=== PATIENT | male | born 1985 | race Caucasian/White ===

== ENCOUNTER 2024-01-07 08:25 | Outpatient (CLI) | payer BC, SELFPAY ==
[2024-01-07 08:34] LABS: Microscopic, Urine URINE MICROSCOPIC (MICROSCOPIC)
[2024-01-07 09:25] LABS: Basophils # 0.1 K/mm3 (0-0.2); Basophils % 1.1 % (0.1-2.0); Eosinophils # 0.4 K/mm3 (0.0-0.4); Eosinophils % 6.3 % (0.1-12.0); Hematocrit 42.7 % (42.0-52.0); Hemoglobin 14.5 g/dL (14.1-18.0); Lymphocytes # 1.9 K/mm3 (0.7-4.5); Lymphocytes % 28.6 % (10-50); Mean Corpuscular Hemoglobin 27.2 pg (27.0-31.2); Mean Corpuscular Volume 79.9 fl (80-94); Mean Platelet Volume 7.9 fl (7.4-10.4); Monocytes # 0.5 K/mm3 (0.1-1.0); Neutrophils # 3.9 K/mm3 (1.8-7.8); Neutrophils % 56.9 % (37.0-80.0); Platelet Count 319 K/mm3 (142-424); Red Blood Count 5.34 M/mm3 (4.60-6.20); Red Cell Distribution Width 14.9 % (11.5-17.5); White Blood Count 6.8 K/mm3 (4.8-10.8)
[2024-01-07 09:57] LABS: Alanine Aminotransferase 26 U/L (12-78); Albumin Level 4.1 g/dl (3.5-5.0); Albumin/Globulin Ratio 1.5 (1.1-1.8); Alkaline Phosphatase 82 U/L (38-126); Aspartate Amino Transferase 20 U/L (17-59); Bilirubin,Total 0.6 mg/dl (0.2-1.3); Blood Urea Nitrogen 16 mg/dl (9-20); Calcium 9.3 mg/dl (8.4-10.2); Carbon Dioxide 25 mmol/L (22.0-30.0); Chloride 106 mmol/L (98-107); Chol/HDL Ratio 3.8 (1-3.5); Cholesterol 165 mg/dl (140-200); Estimated Glomerular Filt Rate 83 ml/min (>60); GFR (African American) 101 ML/MIN (>60); Globulin 2.7 g/dL (1.3-3.2); Glucose 92 mg/dl (74-100); HDL Cholesterol 43 mg/dl (40-60); Sodium 139 mmol/L (136-145); Total Protein,Serum 6.8 g/dl (6.3-8.2); Triglycerides 91 mg/dl (30-150); VLDL Cholesterol 18 mg/dL (0-40)
[2024-01-07 10:14] LABS: Appearance,Urine CLEAR (Clear); Bilirubin,Urine Negative (Negative); Blood, Urine Negative (Negative); Color,Urine YELLOW (Yellow); Free T4 (Free Thyroxine) 1.47 ng/dl (0.78-2.19); Glucose,Urine (UA) Negative (Negative); Ketones,Urine Negative (Negative); Leukocyte Esterase,Urine Negative (Negative); Nitrate,Urine Negative (Negative); Protein,Urine Negative (Negative); Urobilinogen,Urine 0.2 EU/dl (0.2)
[2024-01-07 10:20] LABS: 25-OH Vitamin D, Total 18.6 ng/mL (30-100)
[2024-01-07 10:32] LABS: Thyroid Stimulating Hormone 1.81 uIU/mL (0.465-4.68)
[2024-01-07 10:47] LABS: Iron 71 ug/dL (49-181)
[2024-01-07 10:57] LABS: Total Iron Binding Capacity 279 ug/dL (261-462)
[2024-01-07 10:58] LABS: Vitamin B12 944 pg/mL (239-931)
[2024-01-07 11:22] LABS: Ferritin 116 ng/ml (17.9-464)
[2024-01-07 12:17] LABS: HIV (1&2) Antibody Rapid NONREACTIVE (NONREACTIVE)
[2024-01-07 14:47] LABS: Hemoglobin A1C 5.5 % (4.0-6.0)
[2024-01-08 11:13] LABS: HCV Ab Non Reactive (Non Reactive)
== END 2024-01-07 23:59 | disposition home or self-care (01) ==
PROVIDERS: PCP Nurse Practitioner Family; Visit Provider Nurse Practitioner Family
DX: E66.9 Obesity, unspecified (principal); R53.83 Other fatigue; Z11.59 Encounter for screening for other viral diseases; Z11.4 Encounter for screening for human immunodeficiency virus [HIV]; Z13.1 Encounter for screening for diabetes mellitus; Z13.220 Encounter for screening for lipoid disorders
CPT/HCPCS: 36415; 80050; 80053; 80061; 81001; 82306; 82607; 82728; 83036; 83540; 83550; 84439; 84443; 85025; 86803; 87086; 87389

== ENCOUNTER 2024-01-08 19:15 | Emergency (ER) | payer BC, SELFPAY ==
[2024-01-08 19:17] VITALS: BP 144/106; PULSE 84; RESP 18; TEMP 36.6; O2SAT 98; BMI 36.8
[2024-01-08 19:23] VITALS: BP 144/106; PULSE 86; O2SAT 98
--- NOTE | 2024-01-08 19:34 | PC.NURSE ---
L eye 20/20, R 20/50, Both 20/15. informed
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
[2024-01-08] MEDS: DEXAMETHASONE 4MG TABLET 10 MG PO (20:04)
[2024-01-08] MEDS: ACETAMINOPHEN 500MG TAB 1000 MG PO (20:04)
[2024-01-08] MEDS: IBUPROFEN 600 MG TABLET PO (20:04)
[2024-01-08] MEDS: BACITRACIN ZINC OINT 30GM TUBE TP (20:34)
[2024-01-08] MEDS: FLUORESCEIN SODIUM 1MG STRIP 1 MG OP (20:39)
[2024-01-08] MEDS: TETRACAINE 0.5% OPTH SOL 15ML OP (20:39)
[2024-01-08 20:40] VITALS: BP 144/106; PULSE 89; RESP 18; TEMP 36.8; O2SAT 97
== END 2024-01-08 20:41 | disposition home or self-care (01) ==
PROVIDERS: Emergency Provider Emergency Medicine; PCP Nurse Practitioner Family
DX: T20.40XA Corrosion of unspecified degree of head, face, and neck, unspecified site, initial encounter (principal); H57.12 Ocular pain, left eye; H53.8 Other visual disturbances; G50.1 Atypical facial pain; T65.91XA Toxic effect of unspecified substance, accidental (unintentional), initial encounter; Y92.89 Other specified places as the place of occurrence of the external cause
CPT/HCPCS: 99283; J8540

== ENCOUNTER 2024-01-20 07:42 | Day surgery (SDC) | payer BC, SELFPAY ==
[2024-01-17 10:18] VITALS: BMI 37.9
[2024-01-20] VITALS (10 sets, daily range): BP systolic 110–134; BP diastolic 83–100; PULSE 69–91; RESP 12–18; TEMP 36.3–36.8; O2SAT 96–100
[2024-01-20] MEDS: CEFAZOLIN SODIUM 2 GM in 0.9 % SODIUM CHLORIDE 100 ML IV (09:00)
[2024-01-20] MEDS: LIDOCAINE 1% 20ML MDV 20 ML (09:12)
--- NOTE | 2024-01-20 09:23 | EXP.ANES.CKL ---
[facility] Disclaimer: The information contained in this section may have been updated after the patient was seen, as this information can be updated by other users. Medical History No significant past medical history Surgical History History of tonsillectomy History of myringotomy Family History Family/Other Alcoholism Mother Hyperlipidemia Social History Smoking Status: Never smoker alcohol intake: never substance use type: denies use current occupational status: unemployed Travel in the last 8 weeks: None [facility] Anesthesia Checklist Patient Identification Patient Identification: Verbal (Name & ) Structural Data Admitted From: Home Planned Operative Procedure/s: excision neoplasm l arm NPO Status Verified Time NPO: 00:00 Additional verifications Hx Blood Transfusions: No Blood Transfusion Reaction: No Airway Assessment Mallampati Score:: Class II C-Spine Mobility Assessed: Yes TMJ Mobility Assessed: Yes Dentition: Good Dentition Neurological Assessment Level of Consciousness: Awake, Alert and Appropriate Anesthesia Plan Anesthesia Risk discussed: Yes Anesthesia Plan: Verified ASA Class: II Anesthesia Type: General
--- NOTE | 2024-01-20 09:28 | P.OP_ITS ---
Date of procedure: 01/20/24 Pre-op Diagnosis:: Left upper extremity lipoma (6 cm) Post-op Diagnosis:: Same Procedure performed:: Excision of 6 cm left upper extremity lipoma Surgeon:: Armando Bell MD DISTRICT ADMINISTRATIVE ASSISTANT:: Rj Walter Anesthesia: local and LMA Estimated blood loss (mL): 5 Operative findings:: Lesion excised in toto Operative note:: After informed consent was obtained the patient was taken to the operating room and placed in the supine position. General anesthesia with laryngeal mask airway was achieved. His left forearm was prepped and draped in a sterile fashion. After infiltration with local anesthetic an incision was made overlying the palpable lesion. A fatty tumor consistent with lipoma was noted in the subcutaneous tissue. A combination of sharp dissection and blunt dissection was utilized to free the lipoma from surrounding tissue. The lesion was passed off for pathologic evaluation. Electrocautery was utilized to achieve hemostasis. Skin was then closed with 3-0 Monocryl STRATAFIX in a running subcuticular fashion. Dressings were applied and the patient was transferred to recovery in stable condition after removal of his laryngeal mask airway. Condition: stable Disposition: PACU Specimens:: Left upper extremity lipoma Complications:: No immediate
--- NOTE | 2024-01-20 09:37 | EXP.ANES.I ---
[facility] Anesthesia Record Part I Anesthesia Record I Intake, IV Amount: 1,000 Hydration: Adequate Estimated blood loss (mL): 0 Urine output (mL): 0 Blood Pressure: 124/100 SaO2: 98 Pulse Rate: 76 Airway Patency: Patent Respiratory Rate: 12 Temperature: 98 F Patient is:: Awake and Stable Stable to PACU at:: 09:34
[2024-01-20] MEDS: IBUPROFEN 600 MG TABLET PO (10:36)
[2024-01-20] MEDS: ACETAMINOPHEN 500MG TAB 500 MG PO (10:37)
--- NOTE | 2024-01-20 12:08 | P.PNANES_ITS ---
[facility] Anesthesia Record Part II Anesthesia Record Part II Discharge Time: 10:10 Destination: Surgical Day Care (OP Surgery) PACU nurse assessment reviewed?: Yes Patient Condition:: Good Anesthesia Complications:: None Swallowing reflex intact?: Yes Airway Patency: Patent Cyanosis?: No Blood Pressure: 127/97 SaO2: 100 Respiratory Rate: 18 Pulse Rate: 69 Temperature: 97.4 F Mental Status: Alert & Oriented Pain level:: 0 Nausea and/or vomitting:: None Intake, IV Amount: 0 Hydration: Adequate
== END 2024-01-20 10:43 | disposition home or self-care (01) ==
PROVIDERS: PCP Nurse Practitioner Family; Visit Provider Surgery
PROC: (CPT 24071; principal; 2024-01-20 09:15)
DX: D17.22 Benign lipomatous neoplasm of skin and subcutaneous tissue of left arm (principal)
CPT/HCPCS: 24071; 96374; J0690; J1100; J2250; J2405; J3010

== ENCOUNTER 2024-04-06 13:31 | Outpatient (CLI) | payer BC, SELFPAY ==
[2024-04-06 16:31] LABS: Coronavirus 19, PCR Not Detected (NotDetected); Human Rhinovirus Not Detected (NotDetected); Influenza A, PCR Not Detected (NotDetected); Influenza B, PCR Not Detected (NotDetected); Respiratory Syncytial Virus Not Detected (NotDetected)
== END 2024-04-06 23:59 | disposition home or self-care (01) ==
LOC: LAB.DROPOF 04-07 12:00
PROVIDERS: PCP Nurse Practitioner Family; Visit Provider Nurse Practitioner Family
DX: R68.89 Other general symptoms and signs (principal); R50.9 Fever, unspecified; R11.2 Nausea with vomiting, unspecified; R19.7 Diarrhea, unspecified
CPT/HCPCS: 87631

== ENCOUNTER 2024-04-12 15:10 | Outpatient (CLI) | payer BC, SELFPAY ==
--- NOTE | 2024-04-12 15:13 | XR_ITS ---
FINAL REPORT CLINICAL HISTORY: Shortness of breath COMPARISON: None FINDINGS: PA and lateral views of the chest were obtained. No acute pulmonary density is evident. There is no evidence of effusion or other pleural disease. The mediastinum has a normal appearance. The cardiac silhouette is unremarkable. IMPRESSION: Unremarkable chest exam. Reviewed, Interpreted and Dictated by Wale Eng MD Transcribed by Lisandra Fuller Authenticated and [facility]
--- NOTE | 2024-04-12 15:13 | XR_ITS ---
FINAL REPORT CLINICAL HISTORY: Left knee pain COMPARISON: None FINDINGS: LEFT KNEE Three views demonstrate no acute fracture or dislocation. The joint spaces appear normal. No acute soft tissue abnormality is seen. IMPRESSION: No acute bony abnormality. Reviewed, Interpreted and Dictated by Wale nEg MD Transcribed by Lisandra Fuller Authenticated and [facility]
[2024-04-12 15:43] LABS: Basophils # 0.1 K/mm3 (0-0.2); Basophils % 0.6 % (0.1-2.0); Eosinophils # 0.3 K/mm3 (0.0-0.4); Eosinophils % 3.1 % (0.1-12.0); Hematocrit 45.5 % (42.0-52.0); Hemoglobin 14.5 g/dL (14.1-18.0); Lymphocytes # 2.2 K/mm3 (0.7-4.5); Lymphocytes % 25.5 % (10-50); Mean Corpuscular HGB Conc 31.9 g/dL (31.8-35.4); Mean Corpuscular Hemoglobin 26.7 pg (27.0-31.2); Mean Corpuscular Volume 83.6 fl (80-94); Mean Platelet Volume 9.5 fl (7.4-10.4); Monocytes # 0.6 K/mm3 (0.1-1.0); Monocytes % 6.5 % (1.7-9.3); Neutrophils # 5.6 K/mm3 (1.8-7.8); Neutrophils % 64.1 % (37.0-80.0); Platelet Count 325 K/mm3 (142-424); Red Blood Count 5.44 M/mm3 (4.60-6.20); Red Cell Distribution Width 14.5 % (11.5-17.5); White Blood Count 8.8 K/mm3 (4.8-10.8)
[2024-04-12 16:19] LABS: Erythrocyte Sedimentation Rate 1 mm/hr (0-15)
[2024-04-12 16:30] LABS: Blood Urea Nitrogen 18 mg/dl (9-20); Calcium 9.5 mg/dl (8.4-10.2); Carbon Dioxide 27 mmol/L (22.0-30.0); Estimated Glomerular Filt Rate 94 ml/min (>60); GFR (African American) 114 ML/MIN (>60); Glucose 90 mg/dl (74-100); Potassium 4.6 mmoL/L (3.5-5.1); Sodium 139 mmol/L (136-145); Uric Acid 4.9 mg/dl (3.5-8.5)
[2024-04-12 16:35] LABS: C-Reactive Protein 10.2 mg/L (0-4)
[2024-04-12 16:41] LABS: Anion Gap 13.6 mEq/L (5-15); Chloride 103 mmol/L (98-107)
[2024-04-13 14:11] LABS: EBV Ab VCA, IgG >600.0 U/mL (0.0-17.9); EBV Ab VCA, IgM <36.0 U/mL (0.0-35.9)
== END 2024-04-12 23:59 | disposition home or self-care (01) ==
LOC: LAB 15:11
PROVIDERS: PCP Nurse Practitioner Family; Visit Provider Nurse Practitioner Family
DX: R06.00 Dyspnea, unspecified (principal); M25.562 Pain in left knee; R53.83 Other fatigue; R68.89 Other general symptoms and signs; R11.2 Nausea with vomiting, unspecified; R19.7 Diarrhea, unspecified
CPT/HCPCS: 36415; 71046; 73562; 80048; 84550; 85025; 85651; 86140; 86664; 86665

== ENCOUNTER 2024-04-21 06:13 | Emergency (ER) | payer BC, SELFPAY ==
[2024-04-21 06:18] VITALS: BP 132/98; PULSE 88; PULSE 92; RESP 20; TEMP 36.8; O2SAT 96; O2SAT 97; BMI 33.6
--- NOTE | 2024-04-21 06:22 | XR_ITS ---
PROCEDURE INFORMATION: Exam: XR Chest Exam date and time: 04/21/2024 6:34 AM Age: 38 years old Clinical indication: Cough and shortness of breath; Additional info: SOA TECHNIQUE: Imaging protocol: Radiologic exam of the chest. Views: 1 view. COMPARISON: CR XR CHEST 2V 04/12/2024 3:15 PM FINDINGS: Lungs: Unremarkable. No consolidation. Pleural spaces: Unremarkable. No pleural effusion. No pneumothorax. Heart/Mediastinum: Unremarkable. No cardiomegaly. Bones/joints: Unremarkable. IMPRESSION: No acute findings.
[2024-04-21 06:30] VITALS: BP 143/94; PULSE 71; O2SAT 95
[2024-04-21 06:39] LABS: Coronavirus 19, PCR Not Detected (NotDetected); Influenza A, PCR Not Detected (NotDetected); Influenza B, PCR Not Detected (NotDetected)
[2024-04-21] MEDS: ACETAMINOPHEN 500MG TAB 1000 MG PO (06:39)
[2024-04-21] MEDS: PROMETHAZINE HCL 25MG/ML 1ML VIAL 25 MG IV (06:39)
[2024-04-21] MEDS: 0.9 % SODIUM CHLORIDE 1000ML 1,000 ML 999 ML IV (06:39)
[2024-04-21] MEDS: KETOROLAC 30MG/ML VIAL 30 MG IV (06:39)
[2024-04-21] MEDS: SODIUM CHLORIDE 0.9% 25ML BAG 25 ML IV (06:39)
[2024-04-21 06:40] LABS: Basophils % 0.5 % (0.1-2.0); Eosinophils # 0.3 K/mm3 (0.0-0.4); Eosinophils % 3.6 % (0.1-12.0); Hematocrit 40.8 % (42.0-52.0); Hemoglobin 13.1 g/dL (14.1-18.0); Lymphocytes # 1.5 K/mm3 (0.7-4.5); Lymphocytes % 20.6 % (10-50); Mean Corpuscular HGB Conc 32.1 g/dL (31.8-35.4); Mean Corpuscular Hemoglobin 26.8 pg (27.0-31.2); Mean Corpuscular Volume 83.4 fl (80-94); Mean Platelet Volume 9.5 fl (7.4-10.4); Monocytes # 0.6 K/mm3 (0.1-1.0); Monocytes % 7.4 % (1.7-9.3); Neutrophils % 67.8 % (37.0-80.0); Platelet Count 308 K/mm3 (142-424); Red Blood Count 4.89 M/mm3 (4.60-6.20); White Blood Count 7.4 K/mm3 (4.8-10.8)
--- NOTE | 2024-04-21 06:43 | ED_ITS ---
Discharge Plan Disposition Patient Disposition: Home, Self-Care Chief Complaint: Nausea/Vomiting/Diarrhea Prescriptions Prescriptions: New promethazine 25 mg tablet 25 mg PO Q6H PRN (Reason: nausea and vomiting) Qty: 20 0RF No Action ondansetron 4 mg tablet,disintegrating 4 mg PO Q8H PRN (Reason: nausea and vomiting) Qty: 20 0RF omeprazole 40 mg capsule,delayed release(DR/EC) 40 mg PO DAILY promethazine-DM 6.25-15 mg/5 mL syrup 5 ml PO Q4-6H PRN (Reason: cough) Qty: 118 0RF cholecalciferol (vitamin D3) 50 mcg (2,000 unit) capsule 50 mcg PO DAILY Qty: 90 3RF Referrals Follow up/Referrals: Perri Kirk APRN [Primary Care Provider] - See instructions Activity Restrictions/Add. Instructions Additional Instructions/Restrictions: Please return with any inability to keep fluids down or other concerns. Clinical Impressions Clinical Impression: Nausea vomiting and diarrhea Instructions Patient Instructions: DI for Diarrhea and Traveler's Diarrhea -- Adult, DI for Diarrhea and Traveler's Diarrhea -- Child, DI for Nausea -- Adult, DI for Nausea -- Child Print Language Print Language: [place] Island[place] Discharge ED Provider: Kirit Lu General Adult HPI <Kirit Lu MD - Last Filed: 04/21/24 06:56> General Chief complaint: Nausea/Vomiting/Diarrhea Stated complaint: vomiting, aches, trouble breathing, mono Time Seen by Provider: 04/21/24 06:15 Mode of Arrival: Ambulatory Description of Symptoms (Recalled from ER Triage Doc. by RN): Pt states he was dx with [place] last week Now having vomiting for past day History of Present Illness HPI narrative: 38-year-old male presents for nausea vomiting diarrhea body aches shortness of breath etc. He reports he was diagnosed with mono last week and had a diarrheal illness before that. He had a couple good days where he was not having vomiting and diarrhea, but starting 2 days ago it came back and got worse. He also reports some blood in his stool starting Tuesday. When describing the blood, he describes a clot. He has not been on any antibiotics recently. Denies abdominal pain. Has Zofran at home but feels like it is not working, vomiting all the time. His GI illness has been ongoing for at least 2 to 3- week. Related Data Home Medications ?Medication ?Instructions ?Recorded ?Confirmed omeprazole 40 mg capsule,delayed 40 mg PO DAILY 01/11/24 04/21/24 release Previous Rx's ?Medication ?Instructions ?Recorded cholecalciferol (vitamin D3) 50 50 mcg PO DAILY #90 caps 01/08/24 mcg (2,000 unit) capsule ondansetron 4 mg disintegrating 4 mg PO Q8H PRN nausea and 04/06/24 tablet vomiting #20 tabs promethazine-DM 6.25 mg-15 mg/5 mL 5 ml PO Q4-6H PRN cough #118 mL 04/12/24 oral syrup promethazine 25 mg tablet 25 mg PO Q6H PRN nausea and 04/21/24 vomiting #20 tabs Allergies Allergy/AdvReac Type Severity Reaction Status Date / Time shellfish derived Allergy Unknown Vomiting Verified 04/12/24 14:33 [facility] <Kirit Lu MD - Last Filed: 04/21/24 06:56> [facility] Disclaimer: The information contained in this section may have been updated after the patient was seen, as this information can be updated by other users. Medical History (Updated 04/21/24 @ 06:56 by Kirit Lu MD) Encounter for hepatitis C screening test for low risk patient Screening for HIV (human immunodeficiency virus) Encounter to establish care Nausea History of lipoma No significant past medical history Surgical History History of local excision of skin lesion History of tonsillectomy History of myringotomy Family History Family/Other Alcoholism Mother Hyperlipidemia Social History Smoking Status: Never smoker alcohol intake: never substance use type: denies use current occupational status: unemployed Travel in the last 8 weeks: None Have you lived/traveled outside [place] in past 30 days?: No Contact w/someone who lives/traveled outside US past 30 days?: No Exposure to someone with infectious disease in past 14 days?: Yes Do you have a fever (greater than 100.4 F or 38 C)?: No Have you tested positive for COVID-19: No Exposed to someone with COVID-19 in past 14 days?: No Do you have a sore throat?: No Do you have a cough?: No Do you have any weakness?: No Do you have any diarrhea?: No Are you experiencing any unusual bleeding?: No Do you have any muscle aches/pain?: Yes Do you have any abdominal pain?: No Are you experiencing loss of taste or smell?: No Other Medical History Have you received the Pneumonia Vaccine: No <Kirit Lu MD - Last Filed: 04/21/24 06:56> ROS Obtained: Yes All systems reviewed & no additional complaints except as documented Physical Exam <Kirit Lu MD - Last Filed: 04/21/24 06:56> General General appearance: alert and in no apparent distress Head Head exam: atraumatic and normocephalic Eye Eye exam: Present normal appearance, PERRL and EOMI ENT ENT exam: Present normal oropharynx and normal external ear exam Neck Neck exam: Present normal inspection and full ROM Chest Chest inspection: Present normal inspection and symmetric chest wall rise; Absent tenderness Respiratory Respiratory exam: Present normal lung sounds bilaterally; Absent respiratory distress Cardiovascular Cardiovascular exam: Present regular rate and normal rhythm Abdominal Exam Abdominal exam: Present soft; Absent distention, tenderness or guarding Extremities Exam Extremities exam: Present normal inspection; Absent edema or joint swelling Back Exam Back exam: Present normal inspection; Absent tenderness Neurological Exam Neurological exam: Present alert and oriented X3; Absent motor sensory deficit Psychiatric Psychiatric exam: Present normal affect and normal mood Skin Skin exam: Present warm, dry and normal color Lymphatic Lymphatic Findings: no adenopathy Medical Decision Making <Kirit Lu MD - Last Filed: 04/21/24 06:56> Medical Records Medical records reviewed: Yes I reviewed the patient's medical records. Screening: Per USPSTF and CDC recommendations, given the prevalence of disease in our region, it is our hospital?s policy to screen for HIV and viral Hepatitis for all patients aged 18 and over and those with ongoing risk factors. [place] Inquiry Pt receiving controlled substance: No T[place]ar was queried for this patient: No Vital Signs: 04/21/24 06:18 04/21/24 06:18 04/21/24 06:30 Temperature 98.2 F Temperature Source Oral Pulse Rate 88 71 Pulse Rate [Right Brachial] 92 H Respiratory Rate 20 Blood Pressure 132/98 H 143/94 H Blood Pressure [Right Arm] 132/98 H Blood Pressure Mean [Right Arm] 109 Blood Pressure Source [Right Arm] Automatic Cuff Blood Pressure Position [Right Arm] Sitting 02 Sat by Pulse Oximetry 96 97 95 Oxygen Delivery Method Room Air Room Air Room Air 04/21/24 07:00 04/21/24 07:14 Temperature Temperature Source Pulse Rate 66 67 Pulse Rate [Right Brachial] Respiratory Rate Blood Pressure 133/88 127/86 Blood Pressure [Right Arm] Blood Pressure Mean [Right Arm] Blood Pressure Source [Right Arm] Blood Pressure Position [Right Arm] 02 Sat by Pulse Oximetry 95 95 Oxygen Delivery Method Lab Data Lab results reviewed: Yes I reviewed the patient's lab results. Lab Results 04/21/24 06:26: WBC 7.4, RBC 4.89, Hgb 13.1 L, Hct 40.8 L, MCV 83.4, MCH 26.8 L, MCHC 32.1, RDW 14.0, Plt Count 308, MPV 9.5, Neut % (Auto) 67.8, Lymph % (Auto) 20.6, [place] % (Auto) 7.4, Eos % (Auto) 3.6, Baso % (Auto) 0.5, Neut # (Auto) 5.0, Lymph # (Auto) 1.5, [place] # (Auto) 0.6, Eos # (Auto) 0.3, Baso # (Auto) 0.0, Sodium 140, Potassium 3.8, Chloride 109 H, Carbon Dioxide 25, Anion Gap 9.8, BUN 14, Creatinine 0.90, Estimated Creat Clear 161, Estimated GFR 94, Est GFR ( Amer) 114, Glucose 108 H, Calcium 8.8, Magnesium 2.0, Total Bilirubin 0.4, AST 23, ALT 23, Alkaline Phosphatase 78, Total Protein 6.9, Albumin 4.3, Globulin 2.6, Albumin/Globulin Ratio 1.7, Lipase 72 04/21/24 06:32: SARS-CoV-2 (PCR) Not detected, Influenza A Untype (PCR) Not detected, Influenza Type B (PCR) Not detected 04/21/24 06:26 04/21/24 06:26 Orders (Tests/Meds): ED MEDICATIONS Discontinued Medications Generic Name Dose Route Start Last Admin Trade Name Freq PRN Reason Stop Dose Admin Acetaminophen 1,000 mg 04/21/24 06:22 04/21/24 06:39 Acetaminophen 500mg Tab PO 04/21/24 06:23 1,000 mg ONCE ONE Administration Sodium Chloride 1,000 mls @ 999 mls/hr 04/21/24 06:30 04/21/24 06:39 Sod Chlor 0.9% 1000ml Bag IV 04/21/24 07:30 999 mls/hr .Q1H1M [place] Administration Ketorolac Tromethamine 30 mg 04/21/24 06:22 04/21/24 06:39 Ketorolac 30mg/Ml Vial IV 04/21/24 06:23 30 mg ONCE ONE Administration Promethazine HCl 25 mg 04/21/24 06:22 04/21/24 06:39 Promethazine Hcl 25mg/Ml 1ml Vial IV 04/21/24 06:23 25 mg ONCE ONE Administration Sodium Chloride 25 ml 04/21/24 06:22 04/21/24 06:39 Sodium Chloride 0.9% 25ml Bag IV 04/21/24 06:23 25 ml ONCE ONE Administration ORDERS Category Date Time Status CXR --portable [XR chest portable] Stat Exams 04/21/24 06:22 Taken CBC w/Auto Diff [Complete Blood Count Auto Diff] Stat Lab 04/21/24 06:26 Completed CMP [Comprehensive Metabolic Panel] Stat Lab 04/21/24 06:26 Completed Diarrhea 23 Panel, PCR Stat Lab 04/21/24 06:24 Ordered Lipase Stat Lab 04/21/24 06:26 Completed Magnesium Stat Lab 04/21/24 06:26 Completed Rapid PCR Covid and Flu A/B Stat Lab 04/21/24 06:32 Completed Medical Decision Narrative: 38-year-old male with reported history of recent diagnosis of mono presents for nausea vomiting and bloody diarrhea, also complaining of bodyaches shortness of breath sore throat. History was obtained via interactive discussion with patient. On arrival, patient is [afebrile, hemodynamically stable, satting appropriately, alert, oriented x4, GCS 15], moving all extremities spontaneously. Full physical exam performed and significant for clear lungs bilaterally, no abdominal tenderness Differential includes but is not limited to viral/bacterial gastroenteritis, inflammatory bowel disease, dehydration, lecture light derangement, pancreatitis flu Patient was given 1 L IV fluid bolus, IV Phenergan, Toradol, Tylenol for symptomatic management and correction of underlying abnormalities. Workup initiated including CBC CMP lipase stool PCR mag COVID flu. At this time care handed off to oncoming physician. <Gisela Travis MD - Last Filed: 04/21/24 08:01> Vital Signs: 04/21/24 06:18 04/21/24 06:18 04/21/24 06:30 Temperature 98.2 F Temperature Source Oral Pulse Rate 88 71 Pulse Rate [Right Brachial] 92 H Respiratory Rate 20 Blood Pressure 132/98 H 143/94 H Blood Pressure [Right Arm] 132/98 H Blood Pressure Mean [Right Arm] 109 Blood Pressure Source [Right Arm] Automatic Cuff Blood Pressure Position [Right Arm] Sitting 02 Sat by Pulse Oximetry 96 97 95 Oxygen Delivery Method Room Air Room Air Room Air 04/21/24 07:00 04/21/24 07:14 Temperature Temperature Source Pulse Rate 66 67 Pulse Rate [Right Brachial] Respiratory Rate Blood Pressure 133/88 127/86 Blood Pressure [Right Arm] Blood Pressure Mean [Right Arm] Blood Pressure Source [Right Arm] Blood Pressure Position [Right Arm] 02 Sat by Pulse Oximetry 95 95 Oxygen Delivery Method Lab Data Lab results reviewed: Yes I reviewed the patient's lab results. Lab Results 04/21/24 06:26: WBC 7.4, RBC 4.89, Hgb 13.1 L, Hct 40.8 L, MCV 83.4, MCH 26.8 L, MCHC 32.1, RDW 14.0, Plt Count 308, MPV 9.5, Neut % (Auto) 67.8, Lymph % (Auto) 20.6, [place] % (Auto) 7.4, Eos % (Auto) 3.6, Baso % (Auto) 0.5, Neut # (Auto) 5.0, Lymph # (Auto) 1.5, [place] # (Auto) 0.6, Eos # (Auto) 0.3, Baso # (Auto) 0.0, Sodium 140, Potassium 3.8, Chloride 109 H, Carbon Dioxide 25, Anion Gap 9.8, BUN 14, Creatinine 0.90, Estimated Creat Clear 161, Estimated GFR 94, Est GFR ( Amer) 114, Glucose 108 H, Calcium 8.8, Magnesium 2.0, Total Bilirubin 0.4, AST 23, ALT 23, Alkaline Phosphatase 78, Total Protein 6.9, Albumin 4.3, Globulin 2.6, Albumin/Globulin Ratio 1.7, Lipase 72 04/21/24 06:32: SARS-CoV-2 (PCR) Not detected, Influenza A Untype (PCR) Not detected, Influenza Type B (PCR) Not detected Orders (Tests/Meds): ED MEDICATIONS Discontinued Medications Generic Name Dose Route Start Last Admin Trade Name Freq PRN Reason Stop Dose Admin Acetaminophen 1,000 mg 04/21/24 06:22 04/21/24 06:39 Acetaminophen 500mg Tab PO 04/21/24 06:23 1,000 mg ONCE ONE Administration Sodium Chloride 1,000 mls @ 999 mls/hr 04/21/24 06:30 04/21/24 06:39 Sod Chlor 0.9% 1000ml Bag IV 04/21/24 07:30 999 mls/hr .Q1H1M [place] Administration Ketorolac Tromethamine 30 mg 04/21/24 06:22 04/21/24 06:39 Ketorolac 30mg/Ml Vial IV 04/21/24 06:23 30 mg ONCE ONE Administration Promethazine HCl 25 mg 04/21/24 06:22 04/21/24 06:39 Promethazine Hcl 25mg/Ml 1ml Vial IV 04/21/24 06:23 25 mg ONCE ONE Administration Sodium Chloride 25 ml 04/21/24 06:22 04/21/24 06:39 Sodium Chloride 0.9% 25ml Bag IV 04/21/24 06:23 25 ml ONCE ONE Administration ORDERS Category Date Time Status CXR --portable [XR chest portable] Stat Exams 04/21/24 06:22 Taken CBC w/Auto Diff [Complete Blood Count Auto Diff] Stat Lab 04/21/24 06:26 Completed CMP [Comprehensive Metabolic Panel] Stat Lab 04/21/24 06:26 Completed Diarrhea 23 Panel, PCR Stat Lab 04/21/24 06:24 Ordered Lipase Stat Lab 04/21/24 06:26 Completed Magnesium Stat Lab 04/21/24 06:26 Completed Rapid PCR Covid and Flu A/B Stat Lab 04/21/24 06:32 Completed Medical Decision Narrative: 38-year-old male with reported history of recent diagnosis of mono presents for nausea vomiting and bloody diarrhea, also complaining of bodyaches shortness of breath sore throat. History was obtained via interactive discussion with patient. On arrival, patient is [afebrile, hemodynamically stable, satting appropriately, alert, oriented x4, GCS 15], moving all extremities spontaneously. Full physical exam performed and significant for clear lungs bilaterally, no abdominal tenderness Differential includes but is not limited to viral/bacterial gastroenteritis, inflammatory bowel disease, dehydration, lecture light derangement, pancreatitis flu Patient was given 1 L IV fluid bolus, IV Phenergan, Toradol, Tylenol for symptomatic management and correction of underlying abnormalities. Workup initiated including CBC CMP lipase stool PCR mag COVID flu. At this time care handed off to oncoming physician. Reassessment [address] Travis I took over from Dr. Lu. Labs unremarkable. Patient unable to give us a stool sample we have set him up with an outpatient order so that he can follow-up with this. Most of his symptoms seem to be consistent with a viral syndrome likely secondary to his recent diagnosis of mono. Serial exams are benign patient looks well on reassessment discharged in stable condition with return precautions emphasized. Procedures <Kirit Lu MD - Last Filed: 04/21/24 06:56> Risk/Benefits of Procedure(s) Were Explained: Yes Critical Care <Kirit Lu MD - Last Filed: 04/21/24 06:56> Critical Care Time Critical Care Time: No
[2024-04-21 06:55] LABS: Alanine Aminotransferase 23 U/L (12-78); Albumin Level 4.3 g/dl (3.5-5.0); Albumin/Globulin Ratio 1.7 (1.1-1.8); Alkaline Phosphatase 78 U/L (38-126); Aspartate Amino Transferase 23 U/L (17-59); Bilirubin,Total 0.4 mg/dl (0.2-1.3); Blood Urea Nitrogen 14 mg/dl (9-20); Calcium 8.8 mg/dl (8.4-10.2); Carbon Dioxide 25 mmol/L (22.0-30.0); Chloride 109 mmol/L (98-107); Creatinine Clearance Estimated 161 mL/min (50-200); Estimated Glomerular Filt Rate 94 ml/min (>60); GFR (African American) 114 ML/MIN (>60); Globulin 2.6 g/dL (1.3-3.2); Glucose 108 mg/dl (74-100); Sodium 140 mmol/L (136-145); Total Protein,Serum 6.9 g/dl (6.3-8.2)
[2024-04-21 06:58] LABS: Anion Gap 9.8 mEq/L (5-15); Potassium 3.8 mmoL/L (3.5-5.1)
[2024-04-21 07:00] VITALS: BP 133/88; PULSE 66; O2SAT 95
[2024-04-21 07:00] LABS: Lipase 72 U/L (23-300)
[2024-04-21 07:14] VITALS: BP 127/86; PULSE 67; O2SAT 95
--- NOTE | 2024-04-21 07:28 | PC.NURSE ---
Rounded on pt. He is sleeping comfortably, at bedside. Call light within reach. Phenergan has completed and d/c from IV line. Pt/ aware would like diarrhea sample if he is able.
[2024-04-21 07:30] VITALS: BP 138/92; PULSE 68; RESP 16; O2SAT 95
--- NOTE | 2024-04-21 07:34 | PC.NURSE ---
Rounded on patient no needs at this time.
--- NOTE | 2024-04-21 07:58 | PC.NURSE ---
Dr Travis at bedside
[2024-04-21 08:04] VITALS: BP 130/87; PULSE 60; RESP 16; TEMP 36.8; O2SAT 96
== END 2024-04-21 08:07 | disposition home or self-care (01) ==
PROVIDERS: Emergency Provider Emergency Medicine; PCP Nurse Practitioner Family
DX: R11.2 Nausea with vomiting, unspecified (principal); R19.7 Diarrhea, unspecified; R06.02 Shortness of breath; M79.10 Myalgia, unspecified site; K92.1 Melena; J02.9 Acute pharyngitis, unspecified
CPT/HCPCS: 71045; 80053; 83690; 83735; 85025; 87636; 96361; 96374; 96375; 99283; J1885; J2550; J7030

== ENCOUNTER 2025-01-07 07:10 | Emergency (ER) | payer BC, SELFPAY ==
[2025-01-07 07:17] VITALS: BP 121/74; PULSE 77; RESP 18; TEMP 36.7; O2SAT 99; BMI 29.5
--- NOTE | 2025-01-07 07:25 | CT_ITS ---
FINAL REPORT TECHNIQUE: Thin section axial images were obtained from skull base to vertex without contrast. Coronal reconstruction images were obtained from the axial data. Exam was performed using dose reduction techniques such as automated exposure control, adjustment of the mA and kV according to patient size, and use of iterative reconstruction technique. CLINICAL HISTORY: RUE weakness/paresthesias COMPARISON: None FINDINGS: There is no mass effect or midline shift. There is no hydrocephalus. There is no intracranial hemorrhage. The posterior fossa is without acute abnormality. The basilar cisterns are preserved. The soft tissues are without acute abnormality. No acute osseous abnormality is identified. IMPRESSION: No acute intracranial abnormality. Reviewed, Interpreted and Dictated by Susan Meraz MD Transcribed by Fabienne Patton Authenticated and [facility]
--- NOTE | 2025-01-07 07:25 | XR_ITS ---
FINAL REPORT CLINICAL HISTORY: Shortness of breath COMPARISON: None FINDINGS: A portable view of the chest is obtained. Cardiac and mediastinal silhouettes are normal. The lungs are clear. There is no pleural effusion or pneumothorax. IMPRESSION: No acute process on this portable exam. Reviewed, Interpreted and Dictated by Susan Meraz MD Transcribed by Fabienne Patton Authenticated and [facility]
--- NOTE | 2025-01-07 07:25 | CT_ITS ---
FINAL REPORT TECHNIQUE: Thin section axial images are obtained through the brain after intravenous contrast injection. Multiplanar reconstructions were obtained from the axial data. Exam was performed using dose reduction techniques such as automated exposure control, adjustment of the mA and kV according to patient size, and use of iterative reconstruction technique. CLINICAL HISTORY: RUE weakness/paresthesias COMPARISON: None FINDINGS: The intracerebral portions of the carotid arteries are patent. The anterior and middle cerebral arteries are patent without stenosis or occlusion. The posterior cerebral arteries are patent. The basilar artery is patent. The vertebral arteries are patent. There is no significant stenosis, aneurysm, or AVM. IMPRESSION: Unremarkable CT angiogram of the intracerebral vasculature. Reviewed, Interpreted and Dictated by Susan Meraz MD Transcribed by Fabienne Patton Authenticated and . [facility]
--- NOTE | 2025-01-07 07:25 | CT_ITS ---
FINAL REPORT TECHNIQUE: Thin section axial images were obtained from the aortic arch to the skull base after intravenous contrast injection per CTA protocol. Multiplanar reconstruction images were obtained. Exam was performed using dose reduction techniques and the ALARA principle. CLINICAL HISTORY: RUE weakness/paresthesias COMPARISON: None FINDINGS: CTA NECK: Aortic arch: There is a normal three-vessel configuration to the aortic arch. There is no significant stenosis of the great vessels at their origins. Right carotid artery: The right common carotid artery is patent without stenosis. The cervical portions of the right internal carotid artery are patent without stenosis. 0% stenosis per NASCET criteria. Left carotid artery: The left common carotid artery is patent without stenosis. The cervical portions of the left internal carotid artery are patent without stenosis. 0% stenosis per NASCET criteria. Vertebral arteries: The vertebral arteries are patent. No significant stenosis. There is apparent filling defect of the left internal jugular vein favored to be mixing due to inflow from nonopacified vein. IMPRESSION: No significant stenosis. No evidence of occlusion. Reviewed, Interpreted and Dictated by Susan Meraz MD Transcribed by Fabienne Patton Authenticated and [facility]
--- NOTE | 2025-01-07 07:27 | HMH.EDGENADL ---
Discharge Plan Disposition Patient Disposition: Home, Self-Care Prescriptions Prescriptions: No Action ondansetron 4 mg tablet,disintegrating 4 mg PO Q8H PRN (Reason: nausea and vomiting) Qty: 20 0RF omeprazole 40 mg capsule,delayed release(DR/EC) 40 mg PO DAILY promethazine-DM 6.25-15 mg/5 mL syrup 5 ml PO Q4-6H PRN (Reason: cough) Qty: 118 0RF cholecalciferol (vitamin D3) 50 mcg (2,000 unit) capsule 50 mcg PO DAILY Qty: 90 3RF promethazine 25 mg tablet 25 mg PO Q6H PRN (Reason: nausea and vomiting) Qty: 20 0RF Referrals Follow up/Referrals: Perri Kirk APRN [Primary Care Provider, Family Practice] - See instructions Activity Restrictions/Add. Instructions Additional Instructions/Restrictions: No evidence of an acute neurologic abnormality or vascular abnormality today that explains your paresthesias and weakness in the right upper extremity. I recommend you follow-up outpatient with a neurologist and return with any significant worsening of your symptoms. Specifically there is no evidence of a stroke or any abnormalities related to your spinal cord or its proximal nerve roots on the MRI of your cervical spine. Clinical Impressions Clinical Impression: Paresthesia of right upper extremity, RUE weakness Print Language Print Language: Mongolian Discharge ED Provider: Gisela Travis General Adult HPI General Chief complaint: Neuro Symptoms/Deficit Stated complaint: numbness and tingling in R arm and hand Time Seen by Provider: 01/07/25 07:16 Mode of Arrival: Ambulatory Source of Information: Patient Description of Symptoms (Recalled from ER Triage Doc. by RN): Patient reports waking up at 2 am with weakness and numbness in his right arm. States he felt paralyzed. Reports going to bed fine last night. Denies any other symptoms. History of Present Illness HPI narrative: Patient is a 39-year-old male presenting today with right upper extremity numbness and weakness. States he woke up and could not move his whole body. But then when asked how he got here today said I guess I did move. He is a poor historian but articulates that he felt some tingling in his right upper extremity and he believes that his last known normal was yesterday afternoon at some point. At this point he began to have some weakness in his right upper extremity stating if I had to write my name with a pencil I could not. Denies any symptoms elsewhere in his body. Denies any neck pain any injuries. Denies any neurologic symptoms and the rest of his extremities denies any changes in vision coordination etc. Related Data Home Medications ?Medication ?Instructions ?Recorded ?Confirmed omeprazole 40 mg capsule,delayed 40 mg PO DAILY 01/11/24 04/21/24 release Previous Rx's ?Medication ?Instructions ?Recorded cholecalciferol (vitamin D3) 50 50 mcg PO DAILY #90 caps 01/08/24 mcg (2,000 unit) capsule ondansetron 4 mg disintegrating 4 mg PO Q8H PRN nausea and 04/06/24 tablet vomiting #20 tabs promethazine-DM 6.25 mg-15 mg/5 mL 5 ml PO Q4-6H PRN cough #118 mL 04/12/24 oral syrup promethazine 25 mg tablet 25 mg PO Q6H PRN nausea and 04/21/24 vomiting #20 tabs Allergies Allergy/AdvReac Type Severity Reaction Status Date / Time shellfish derived Allergy Unknown Vomiting Verified 04/12/24 14:33 [facility] Disclaimer: The information contained in this section may have been updated after the patient was seen, as this information can be updated by other users. Medical History (Updated 01/07/25 @ 10:00 by Gisela Travis MD) Encounter for hepatitis C screening test for low risk patient Screening for HIV (human immunodeficiency virus) Encounter to establish care Nausea History of lipoma No significant past medical history Surgical History History of local excision of skin lesion History of tonsillectomy History of myringotomy Family History Family/Other Alcoholism Mother Hyperlipidemia Social History Smoking Status: Never smoker alcohol intake: never substance use type: denies use current occupational status: unemployed Travel in the last 8 weeks?: None Have you lived/traveled outside [place] in past 30 days?: No Contact w/someone who lives/traveled outside [place] past 30 days?: No Exposure to someone with infectious disease in past 14 days?: No Do you have a fever (greater than 100.4 F or 38 C)?: No Have you tested positive for COVID-19?: No Exposed to someone with COVID-19 in past 14 days?: No Do you have a sore throat?: No Do you have a cough?: No Do you have any weakness?: No Do you have any diarrhea?: No Are you experiencing any unusual bleeding?: No Do you have any muscle aches/pain?: No Do you have any abdominal pain?: No Are you experiencing loss of taste or smell?: No Other Medical History Have you received the Pneumonia Vaccine: No ROS Obtained: Yes All systems reviewed & no additional complaints except as documented Physical Exam General General appearance: alert and in no apparent distress Respiratory Respiratory exam: Present normal lung sounds bilaterally Cardiovascular Cardiovascular exam: Present regular rate Neurological Exam Neurological exam: Present alert, oriented X3, CN II-XII intact and motor sensory deficit (Patient has paresthesias but he has normal median ulnar radial and axillary motor and sensory function specifically from a pain position and temperature 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 [place] Inquiry Pt receiving controlled substance: No Vital Signs: 01/07/25 07:17 01/07/25 08:52 Temperature 98.0 F Temperature Source Oral Pulse Rate 60 Pulse Rate [Radial] 77 Respiratory Rate 18 13 Blood Pressure 112/75 Blood Pressure [Left Arm] 121/74 Blood Pressure Mean [Left Arm] 89 Blood Pressure Source [Left Arm] Automatic Cuff Blood Pressure Position [Left Arm] Sitting 02 Sat by Pulse Oximetry 99 98 Oxygen Delivery Method Room Air Room Air Lab Data Lab results reviewed: Yes I reviewed the patient's lab results. Lab Results 01/07/25 07:31: WBC 7.1, RBC 5.09, Hgb 14.0 L, Hct 43.8, MCV 86.1, MCH 27.5, MCHC 32.0, RDW 13.8, Plt Count 259, MPV 9.7, Neut % (Auto) 64.2, Lymph % (Auto) 24.6, [place] % (Auto) 6.7, Eos % (Auto) 3.8, Baso % (Auto) 0.6, Neut # (Auto) 4.6, Lymph # (Auto) 1.8, [place] # (Auto) 0.5, Eos # (Auto) 0.3, Baso # (Auto) 0.0, ESR 11, PT 10.6, INR 0.95, APTT 24.2, Sodium 136, Potassium 4.3, Chloride 106, Carbon Dioxide 25, Anion Gap 9.3, BUN 17, Creatinine 0.90, Estimated Creat Clear 140, Estimated GFR 93, Est GFR ( Amer) 113, Glucose 102 H, Calcium 9.2, Total Bilirubin 0.4, AST 25, ALT 20, Alkaline Phosphatase 63, Total Creatine Kinase 213 H, Troponin I < 0.01, C-Reactive Protein 5.7 H, Total Protein 7.3, Albumin 4.5, Globulin 2.8, Albumin/Globulin Ratio 1.6, HCV Ab JAYCOB w/Rflx PCR Qn Negative, HIV Ag/Ab Combo Qual Negative 01/07/25 07:31 01/07/25 07:31 Orders (Tests/Meds): ED MEDICATIONS Discontinued Medications Generic Name Dose Route Start Last Admin Trade Name Freq PRN Reason Stop Dose Admin Acetaminophen 1,000 mg 01/07/25 11:02 01/07/25 11:06 Acetaminophen 500mg Tab PO 01/07/25 11:03 1,000 mg ONCE ONE Administration Lactated Ringer's 1,000 mls @ 999 mls/hr 01/07/25 07:30 01/07/25 11:01 Lactated Ringer's 1000 Ml Bag IV 01/07/25 08:30 Infused .Q1H1M [place] Infusion Iopamidol 80 ml 01/07/25 08:36 01/07/25 08:39 Iopamidol-370 (76%);100ml Bottle IV 01/07/25 08:37 80 ml ONCE ONE Administration Sodium Chloride 40 ml 01/07/25 08:36 01/07/25 08:39 0.9 % Sodium Chloride 50 Ml Vial IV 01/07/25 08:37 40 ml ONCE ONE Administration Sodium Chloride 10 ml 01/07/25 08:36 01/07/25 08:39 Sodium Chloride 0.9% 10ml Syr (Rad Only) IV 01/07/25 08:37 10 ml ONCE ONE Administration ORDERS Category Date Time Status CT angio head Stat Cat Scan 01/07/25 07:[address] angio neck Stat Cat Scan 01/07/25 07:[address] head/brain wo con Stat Cat Scan 01/07/25 07:25 Completed CXR --portable [XR chest portable] Stat Exams 01/07/25 07:25 Completed CBC w/Auto Diff [Complete Blood Count Auto Diff] Stat Lab 01/07/25 07:31 Completed CK [Creatine Kinase] Stat Lab 01/07/25 07:31 Completed CMP [Comprehensive Metabolic Panel] Stat Lab 01/07/25 07:31 Completed CRP [C-Reactive Protein] Stat Lab 01/07/25 07:31 Completed ESR [Erythrocyte Sedimentation Rate] Stat Lab 01/07/25 07:31 Completed HIV Combo Stat Lab 01/07/25 07:31 Completed Hepatitis C Ab Qual. 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 I believe this is most likely cervical radiculopathy but given the weakness could have myelopathy. Other demyelinating conditions are on the differential. Stroke remains on the differential but is unlikely we will get CT angiography of the head and neck and noncontrasted CT scan as well. Patient likely will need an MRI of his brain and cervical spine if his stroke workup is negative. Reassessment [address] scans performed which I personally interpreted which show no evidence of any acute neurovascular or cranial abnormalities. Patient continues to have paresthesias in his upper extremity and objective weakness therefore we will get an MRI of his cervical spine and brain to rule out other pathology as discussed above. Patient placed in ED observation status until this comes back. Reassessment 2:20 PM MRI of the cervical spine and brain performed which I personally interpreted which shows no evidence of any neurologic abnormalities or emergencies. Radiology read consistent with this as well. Reassessment clinically the patient's paresthesias and muscular weakness are almost resolved at this point I do not believe that this is a TIA there is no evidence of a stroke could have a peripheral neuropathy at this point but nothing proximal to require any neurosurgical intervention his pulses are normal does not a vascular abnormality. Overall I have advised that he follow-up with a neurologist outpatient and return with any significant worsening of his symptoms and we have ruled out central causes of his symptoms at this point. Patient discharged in stable condition Critical Care Critical Care Time Critical Care Time: No
--- NOTE | 2025-01-07 07:30 | ECG_ITS ---
APPROVED REPORT Exam: Resting ECG HR:59 bpm ECG Measurements Heart Rate 59 AXES AZ 160 P 47 QRSd 114 QRS 40 QT 423 T -1 QTc 422 Conclusion SINUS BRADYCARDIA MODERATE INTRAVENTRICULAR CONDUCTION DELAY [110+ ms QRS DURATION] BORDERLINE ECG UNCONFIRMED REPORT Electronically signed by : Dwain Travis, 01/08/2025 15:23:26
[2025-01-07] MEDS: LACTATED RINGERS 1000ML 1,000 ML 999 ML IV (07:40)
[2025-01-07 07:47] LABS: Hematocrit 43.8 % (42.0-52.0); Hemoglobin 14.0 g/dL (14.1-18.0); Immature Granulocytes % 0.1 %; Mean Corpuscular HGB Conc 32.0 g/dL (31.8-35.4); Mean Corpuscular Hemoglobin 27.5 pg (27.0-31.2); Mean Corpuscular Volume 86.1 fl (80-94); Nucleated Red Blood Cells % 0 %; Platelet Count 259 K/mm3 (142-424); Red Blood Count 5.09 M/mm3 (4.60-6.20); Red Cell Distribution Width-SD 43.8 fL; White Blood Count 7.1 K/mm3 (4.8-10.8)
[2025-01-07 07:58] LABS: Alanine Aminotransferase 20 U/L (12-78); Albumin Level 4.5 g/dl (3.5-5.0); Albumin/Globulin Ratio 1.6 (1.1-1.8); Alkaline Phosphatase 63 U/L (38-126); Anion Gap 9.3 mEq/L (5-15); Aspartate Amino Transferase 25 U/L (17-59); Bilirubin,Total 0.4 mg/dl (0.2-1.3); Blood Urea Nitrogen 17 mg/dl (9-20); Calcium 9.2 mg/dl (8.4-10.2); Carbon Dioxide 25 mmol/L (22.0-30.0); Chloride 106 mmol/L (98-107); Creatine Kinase 213 U/L (55-170); Creatinine Clearance Estimated 140 mL/min (50-200); Creatinine,Serum 0.90 mg/dl (0.66-1.25); Estimated Glomerular Filt Rate 93 ml/min (>60); GFR (African American) 113 ML/MIN (>60); Globulin 2.8 g/dL (1.3-3.2); Glucose 102 mg/dl (74-100); Potassium 4.3 mmoL/L (3.5-5.1); Sodium 136 mmol/L (136-145); Total Protein,Serum 7.3 g/dl (6.3-8.2)
[2025-01-07 08:02] LABS: Activated Partial Thrombo Time 24.2 seconds (22.8-30.6); INR 0.95 (0.9-1.1); Prothrombin Time 10.6 seconds (10.1-12.5)
[2025-01-07 08:03] LABS: C-Reactive Protein 5.7 mg/L (0-4)
[2025-01-07 08:15] LABS: Troponin I < 0.01 ng/ml (0.00-0.034)
[2025-01-07] MEDS: SODIUM CHLORIDE 0.9% 10ML SYR (RAD ONLY) 10 ML IV (08:39)
[2025-01-07] MEDS: 0.9 % SODIUM CHLORIDE 50 ML VIAL 40 ML IV (08:39)
[2025-01-07] MEDS: IOPAMIDOL-370 (76%);100ML BOTTLE 80 ML IV (08:39)
[2025-01-07 08:52] VITALS: BP 112/75; PULSE 60; RESP 13; O2SAT 98
[2025-01-07 09:29] LABS: Hepatitis C Ab Qual. W/ RFX NEGATIVE (Negative)
--- NOTE | 2025-01-07 09:56 | MR_ITS ---
FINAL REPORT TECHNIQUE: Multiplanar and multisequence imaging of the cervical spine was obtained. CLINICAL HISTORY: RUE weakness/paresthesias; LKN yesterday FINDINGS: Alignment is normal in the sagittal plane. Vertebral body height is preserved. Signal intensity within the substance of the spinal cord is normal. No acute bone marrow edema. No acute paraspinal abnormality. C2/3: No focal disc herniation, central canal stenosis, or neural foraminal narrowing. C3/4: No focal disc herniation, central canal stenosis, or neural foraminal narrowing. C4/5: No focal disc herniation, central canal stenosis, or neural foraminal narrowing. C5/6: No focal disc herniation, central canal stenosis, or neural foraminal narrowing. C6/7: No focal disc herniation, central canal stenosis, or neural foraminal narrowing. C7/T1: No focal disc herniation, central canal stenosis, or neural foraminal narrowing. IMPRESSION: No focal disc herniation, central stenosis, or neural foraminal narrowing. Reviewed, Interpreted and Dictated by Susan Meraz MD Transcribed by Mary Trinidad Authenticated and [facility]
--- NOTE | 2025-01-07 09:56 | MR_ITS ---
FINAL REPORT TECHNIQUE: Multiplanar and multisequence imaging of the brain was obtained without contrast. CLINICAL HISTORY: RUE weakness/paresthesias; LKN yesterday FINDINGS: Brain parenchymal: There is no mass effect or midline shift. There are no areas of abnormal signal intensity.The cerebellum and brainstem are without acute abnormality. Ventricles: The ventricles are symmetric in size and configuration without hydrocephalus. Extra-axial spaces: No extra-axial fluid collections. Diffusion imaging: No areas of restricted diffusion to suggest acute infarct. Flow voids: Flow voids within the major intracranial vessels are preserved. Soft tissues: Soft tissues are without acute abnormality. IMPRESSION: No acute intracranial abnormality. Reviewed, Interpreted and Dictated by Susan Meraz MD Transcribed by Mary Trinidad Authenticated and [facility]
--- NOTE | 2025-01-07 09:57 | PC.NURSE ---
Spoke with MRI states it will be around 1130-12 before they would be able to come down and get him.
[2025-01-07] MEDS: ACETAMINOPHEN 500MG TAB 1000 MG PO (11:06)
--- NOTE | 2025-01-07 11:41 | PC.NURSE ---
pt leaving with radiology for MRI
[2025-01-07 14:28] VITALS: BP 112/75; PULSE 68; RESP 16; TEMP 37; O2SAT 99
== END 2025-01-07 14:32 | disposition home or self-care (01) ==
PROVIDERS: Emergency Provider Student in an Organized Health Care Education/Training Program; PCP Nurse Practitioner Family
DX: R20.2 Paresthesia of skin (principal); R53.1 Weakness; R20.0 Anesthesia of skin
CPT/HCPCS: 70450; 70496; 70498; 70551; 71045; 72141; 80053; 82550; 84484; 85025; 85610; 85651; 85730; 86140; 86803; 87389; 93005; 96360; 99285; J7120; Q9967